=== PATIENT | female | born 1935 | race African-American/Black ===

== ENCOUNTER 2019-07-25 13:50 | Inpatient (IN) ==
[2019-07-25 19:53] LABS: Hematocrit 36.9 % (35.3-44.9); Hemoglobin 11.7 g/dL (11.5-15.4); Mean Corpuscular HGB Conc 31.7 g/dL (31.6-35.5); Mean Corpuscular Hemoglobin 29.1 pg (28.0-33.3); Mean Corpuscular Volume 91.8 fL (83.0-100.0); Mean Platelet Volume 12.8 fL (9.4-12.4); Platelet Count 154 K/mcL (140-400); Red Blood Count 4.02 M/mcL (3.82-4.97); Red Cell Distribution Width 13.6 % (11.5-14.5); White Blood Count 3.7 K/mcL (4.3-11.1)
[2019-07-25 20:03] LABS: Calcium 9.6 mg/dL (8.6-10.3); Potassium 4.4 mEq/L (3.5-5.1)
[2019-07-26 03:02] LABS: Basophils % 0.2 %; Hematocrit 39.1 % (35.3-44.9); Hemoglobin 12.8 g/dL (11.5-15.4); Lymphocytes # 0.8 K/mcL (0.6-4.6); Lymphocytes % 15.7 %; Mean Corpuscular HGB Conc 32.7 g/dL (31.6-35.5); Mean Corpuscular Hemoglobin 29.1 pg (28.0-33.3); Mean Corpuscular Volume 88.9 fL (83.0-100.0); Mean Platelet Volume 12.3 fL (9.4-12.4); Monocytes # 0.4 K/mcL (0.0-1.3); Neutrophils # 3.6 K/mcL (1.6-8.9); Platelet Count 162 K/mcL (140-400); Red Cell Distribution Width 13.3 % (11.5-14.5); Segmented Neutrophils % 75.1 %; White Blood Count 4.8 K/mcL (4.3-11.1)
[2019-07-26 03:16] LABS: Albumin 4.1 g/dL (3.5-5.7); Albumin/Globulin Ratio 1.4 (1.1-2.2); Bilirubin,Total 0.7 mg/dL (0.3-1.0); Calcium 9.3 mg/dL (8.6-10.3); Potassium 3.9 mEq/L (3.5-5.1); Total Protein 7.1 g/dL (6.4-8.9)
[2019-07-26] MEDS: *HR* Heparin 5,000 UNIT/ML VIAL SQ SCH ×3 (06:16→19:42)
[2019-07-26 06:49] LABS: Bilirubin,Urine Negative (Negative); Blood,Urine Moderate (Negative); Clarity,Urine Clear (Clear); Color,Urine Yellow (Yellow); Glucose,Urine (UA) Normal (Normal); Ketones,Urine 40 mg/dL (Negative); Leukocyte Esterase,Urine Negative (Negative); Nitrite,Urine Negative (Negative); PH,Urine 5.5 pH Units (5.0-8.0); Protein,Urine 100 mg/dL (Neg-Trace); Specific Gravity,Urine 1.018 (1.010-1.025); Urobilinogen,Urine Normal (Normal)
[2019-07-26 06:50] LABS: Bacteria,Urine None Seen per hpf (None-Few); Hyaline Casts,Urine None Seen per lpf (None-Few); Squamous Epithelial Cell,Urine Few per lpf (None-Few); WBC,Urine 0-3 per hpf (0-3)
[2019-07-26] MEDS ORDERED: amLODIPine 5 MG TABLET PO SCH (09:00)
[2019-07-26] MEDS: Furosemide 20 MG/2 ML VIAL IVP SCH (09:30)
[2019-07-26] MEDS: amLODIPine 5 MG TABLET PO SCH (09:31)
[2019-07-26] MEDS: cloNIDine HCL 0.1 MG TABLET PO SCH ×3 (09:31→19:41)
[2019-07-26] MEDS ORDERED: *HR* Atropine Sulfate 1 MG/10 ML SYRINGE ONE (21:14)
[2019-07-27] MEDS: *HR* Heparin 5,000 UNIT/ML VIAL SQ SCH (04:23)
[2019-07-27 06:03] LABS: Creatine Kinase 1424 Units/L (30-223); Ferritin 161 ng/mL (10-120); Lactate Dehydrogenase 219 Units/L (140-271)
[2019-07-27] MEDS: cloNIDine HCL 0.1 MG TABLET PO SCH ×3 (10:28→20:17)
[2019-07-27] MEDS: amLODIPine 5 MG TABLET PO SCH (10:28)
[2019-07-27] MEDS: Furosemide 20 MG/2 ML VIAL IVP SCH (10:29)
[2019-07-27] MEDS ORDERED: *HR* Enoxaparin 40 MG/0.4 ML SYRINGE SQ SCH (18:00)
[2019-07-27] MEDS: Doxycycline 100 MG CAPSULE PO SCH (20:16)
[2019-07-27] MEDS: *HR* HYDROcodone/Acet 5/325 mg TABLET PO PRN (21:14)
[2019-07-28 03:25] LABS: Calcium 8.4 mg/dL (8.6-10.3); Magnesium 1.6 mg/dL (1.6-2.6); Potassium 3.5 mEq/L (3.5-5.1)
[2019-07-28] MEDS: Doxycycline 100 MG CAPSULE PO SCH ×2 (09:17→20:47)
[2019-07-28] MEDS: amLODIPine 5 MG TABLET PO SCH (09:17)
[2019-07-28] MEDS: cloNIDine HCL 0.1 MG TABLET PO SCH ×3 (09:17→20:48)
[2019-07-28] MEDS: *HR* Enoxaparin 30 MG/0.3 ML SYRINGE SQ SCH (17:20)
[2019-07-28] MEDS: *HR* HYDROcodone/Acet 5/325 mg TABLET PO PRN (17:20)
[2019-07-29 01:49] LABS: Calcium 8.2 mg/dL (8.6-10.3); Magnesium 1.7 mg/dL (1.6-2.6); Phosphorous 3.2 mg/dL (2.7-4.5); Potassium 3.7 mEq/L (3.5-5.1)
[2019-07-29 02:14] LABS: Uric Acid 7.1 mg/dL (2.3-7.6)
[2019-07-29] MEDS: amLODIPine 5 MG TABLET PO SCH (08:45)
[2019-07-29] MEDS: cloNIDine HCL 0.1 MG TABLET PO SCH ×3 (08:45→20:05)
[2019-07-29] MEDS: Doxycycline 100 MG CAPSULE PO SCH ×2 (08:45→20:05)
[2019-07-29] MEDS: *HR* Enoxaparin 30 MG/0.3 ML SYRINGE SQ SCH (17:29)
[2019-07-30 04:58] LABS: Basophils % 0.3 %; Eosinophils % 0.3 %; Hematocrit 33.9 % (35.3-44.9); Hemoglobin 11.2 g/dL (11.5-15.4); Immature Granulocytes % 0.5 % (0-4); Lymphocytes # 1.1 K/mcL (0.6-4.6); Lymphocytes % 27.9 %; Mean Corpuscular Hemoglobin 29.4 pg (28.0-33.3); Mean Platelet Volume 12.1 fL (9.4-12.4); Monocytes # 0.6 K/mcL (0.0-1.3); Monocytes % 15.4 %; Neutrophils # 2.1 K/mcL (1.6-8.9); Platelet Count 108 K/mcL (140-400); Red Blood Count 3.81 M/mcL (3.82-4.97); Red Cell Distribution Width 13.3 % (11.5-14.5); Segmented Neutrophils % 55.6 %; White Blood Count 3.8 K/mcL (4.3-11.1)
[2019-07-30 05:18] LABS: Albumin 3.1 g/dL (3.5-5.7); Albumin/Globulin Ratio 1.2 (1.1-2.2); Bilirubin,Total 0.4 mg/dL (0.3-1.0); Calcium 8.2 mg/dL (8.6-10.3); Globulin 2.5 g/dL (2.4-3.5); Magnesium 1.6 mg/dL (1.6-2.6); Phosphorous 2.7 mg/dL (2.7-4.5); Total Protein 5.6 g/dL (6.4-8.9)
[2019-07-30] MEDS: cloNIDine HCL 0.1 MG TABLET PO SCH ×3 (06:47→21:45)
[2019-07-30] MEDS: amLODIPine 5 MG TABLET PO SCH (06:49)
[2019-07-30] MEDS: Doxycycline 100 MG CAPSULE PO SCH ×2 (08:32→21:45)
[2019-07-30] MEDS: *HR* HYDROcodone/Acet 5/325 mg TABLET PO PRN (08:32)
[2019-07-30] MEDS: *HR* Enoxaparin 40 MG/0.4 ML SYRINGE SQ SCH (18:21)
[2019-07-31 03:58] LABS: Basophils % 0.3 %; Eosinophils % 0.6 %; Hematocrit 34.2 % (35.3-44.9); Hemoglobin 11.1 g/dL (11.5-15.4); Immature Granulocytes % 0.6 % (0-4); Lymphocytes % 28.7 %; Mean Corpuscular HGB Conc 32.5 g/dL (31.6-35.5); Mean Corpuscular Hemoglobin 29.1 pg (28.0-33.3); Mean Corpuscular Volume 89.8 fL (83.0-100.0); Mean Platelet Volume 12.6 fL (9.4-12.4); Monocytes # 0.6 K/mcL (0.0-1.3); Monocytes % 16.9 %; Neutrophils # 1.9 K/mcL (1.6-8.9); Platelet Count 136 K/mcL (140-400); Red Blood Count 3.81 M/mcL (3.82-4.97); Red Cell Distribution Width 13.5 % (11.5-14.5); Segmented Neutrophils % 52.9 %; White Blood Count 3.6 K/mcL (4.3-11.1)
[2019-07-31 04:15] LABS: Calcium 8.5 mg/dL (8.6-10.3); Magnesium 1.6 mg/dL (1.6-2.6); Potassium 4.2 mEq/L (3.5-5.1)
[2019-07-31] MEDS: Doxycycline 100 MG CAPSULE PO SCH ×2 (08:56→19:39)
[2019-07-31] MEDS: cloNIDine HCL 0.1 MG TABLET PO SCH ×3 (08:56→19:39)
[2019-07-31] MEDS: amLODIPine 5 MG TABLET PO SCH (08:56)
[2019-07-31] MEDS: *HR* Enoxaparin 40 MG/0.4 ML SYRINGE SQ SCH (16:34)
[2019-08-01 06:24] LABS: Hematocrit 33.6 % (35.3-44.9); Hemoglobin 10.7 g/dL (11.5-15.4); Mean Corpuscular HGB Conc 31.8 g/dL (31.6-35.5); Mean Corpuscular Hemoglobin 28.9 pg (28.0-33.3); Mean Corpuscular Volume 90.8 fL (83.0-100.0); Mean Platelet Volume 12.2 fL (9.4-12.4); Platelet Count 150 K/mcL (140-400); Red Cell Distribution Width 13.5 % (11.5-14.5); White Blood Count 3.6 K/mcL (4.3-11.1)
[2019-08-01 06:43] LABS: Calcium 8.4 mg/dL (8.6-10.3); Potassium 4.2 mEq/L (3.5-5.1)
[2019-08-01] MEDS: amLODIPine 5 MG TABLET PO SCH (08:29)
[2019-08-01] MEDS: Doxycycline 100 MG CAPSULE PO SCH ×2 (08:29→20:47)
[2019-08-01] MEDS: cloNIDine HCL 0.1 MG TABLET PO SCH ×3 (08:29→20:47)
[2019-08-01] MEDS: *HR* Enoxaparin 40 MG/0.4 ML SYRINGE SQ SCH (17:01)
[2019-08-02] MEDS: cloNIDine HCL 0.1 MG TABLET PO SCH ×3 (09:00→17:52)
[2019-08-02] MEDS: Acetaminophen 325 MG TABLET PO PRN ×2 (09:23→22:42)
[2019-08-02] MEDS: Doxycycline 100 MG CAPSULE PO SCH ×2 (09:24→21:50)
[2019-08-02] MEDS: amLODIPine 5 MG TABLET PO SCH (09:24)
[2019-08-02] MEDS: *HR* Enoxaparin 40 MG/0.4 ML SYRINGE SQ SCH (18:40)
[2019-08-02 22:45] LABS: D-Dimer 420 ng/mLFEU (0-500)
[2019-08-02 22:52] LABS: Fibrinogen 494 mg/dL (169-393)
[2019-08-03 05:41] LABS: Basophils % 0.4 %; Eosinophils # 0.1 K/mcL (0.0-0.6); Eosinophils % 1.7 %; Hematocrit 34.9 % (35.3-44.9); Hemoglobin 11.3 g/dL (11.5-15.4); Immature Granulocytes % 1.7 % (0-4); Lymphocytes # 1.2 K/mcL (0.6-4.6); Lymphocytes % 22.3 %; Mean Corpuscular HGB Conc 32.4 g/dL (31.6-35.5); Mean Corpuscular Hemoglobin 29.2 pg (28.0-33.3); Mean Corpuscular Volume 90.2 fL (83.0-100.0); Mean Platelet Volume 11.6 fL (9.4-12.4); Monocytes # 0.8 K/mcL (0.0-1.3); Monocytes % 15.9 %; Platelet Count 195 K/mcL (140-400); Red Blood Count 3.87 M/mcL (3.82-4.97); Red Cell Distribution Width 13.7 % (11.5-14.5); White Blood Count 5.2 K/mcL (4.3-11.1)
[2019-08-03 06:01] LABS: Calcium 8.8 mg/dL (8.6-10.3); Magnesium 2.3 mg/dL (1.6-2.6); Potassium 4.3 mEq/L (3.5-5.1)
[2019-08-03] MEDS: amLODIPine 5 MG TABLET PO SCH (07:50)
[2019-08-03] MEDS: Doxycycline 100 MG CAPSULE PO SCH ×2 (07:50→19:59)
[2019-08-03] MEDS: Acetaminophen 325 MG TABLET PO PRN ×2 (12:14→20:42)
[2019-08-03 13:27] LABS: Bilirubin,Urine Negative (Negative); Blood,Urine Trace (Negative); Clarity,Urine Cloudy (Clear); Color,Urine Yellow (Yellow); Glucose,Urine (UA) Normal (Normal); Ketones,Urine Negative (Negative); Leukocyte Esterase,Urine Small (Negative); Nitrite,Urine Negative (Negative); PH,Urine 5.5 pH Units (5.0-8.0); Protein,Urine 30 mg/dL (Neg-Trace); Specific Gravity,Urine 1.021 (1.010-1.025); Urobilinogen,Urine Normal (Normal)
[2019-08-03 13:30] LABS: Bacteria,Urine None Seen per hpf (None-Few); Squamous Epithelial Cell,Urine Many per lpf (None-Few)
[2019-08-03] MEDS ORDERED: *HR* Metoprolol 5 MG/5 ML VIAL IVP ONE (14:38)
[2019-08-03] MEDS ORDERED: cefTRIAXone 1,000 MG in Water for inj. (sterile) 10 ML IVP SCH (15:00)
[2019-08-03] MEDS ORDERED: Vancomycin 1,750 MG/517.5 ML IV.SOLN IVPB ONE (15:10)
[2019-08-03] MEDS: *HR* Enoxaparin 40 MG/0.4 ML SYRINGE SQ SCH (17:36)
[2019-08-03] MEDS: Piperacillin/Tazobactam 3.375 GM in 0.9 % Sodium Chloride Mini Bag 100 ML IVPB SCH ×2 (17:55→23:49)
[2019-08-04] MEDS: Acetaminophen 325 MG TABLET PO PRN (06:03)
[2019-08-04 06:07] LABS: Basophils % 0.3 %; Eosinophils # 0.1 K/mcL (0.0-0.6); Eosinophils % 1.6 %; Hematocrit 35.1 % (35.3-44.9); Hemoglobin 11.2 g/dL (11.5-15.4); Immature Granulocytes % 1.6 % (0-4); Lymphocytes # 1.1 K/mcL (0.6-4.6); Lymphocytes % 18.5 %; Mean Corpuscular HGB Conc 31.9 g/dL (31.6-35.5); Mean Corpuscular Hemoglobin 28.9 pg (28.0-33.3); Mean Corpuscular Volume 90.5 fL (83.0-100.0); Mean Platelet Volume 11.3 fL (9.4-12.4); Monocytes # 0.8 K/mcL (0.0-1.3); Monocytes % 13.3 %; Neutrophils # 3.9 K/mcL (1.6-8.9); Platelet Count 242 K/mcL (140-400); Red Blood Count 3.88 M/mcL (3.82-4.97); Red Cell Distribution Width 13.8 % (11.5-14.5); Segmented Neutrophils % 64.7 %; White Blood Count 6.1 K/mcL (4.3-11.1)
[2019-08-04] MEDS: Piperacillin/Tazobactam 3.375 GM in 0.9 % Sodium Chloride Mini Bag 100 ML IVPB SCH ×3 (08:20→23:31)
[2019-08-04] MEDS: amLODIPine 5 MG TABLET PO SCH (08:20)
[2019-08-04] MEDS: Doxycycline 100 MG CAPSULE PO SCH (08:20)
[2019-08-04] MEDS: Spironolactone 25 MG TABLET PO SCH (11:56)
[2019-08-04] MEDS: *HR* Enoxaparin 40 MG/0.4 ML SYRINGE SQ SCH (18:39)
[2019-08-04] MEDS: Vancomycin 1,500 MG/265 ML IV.SOLN IVPB SCH (20:41)
[2019-08-05 04:12] LABS: Basophils # 0.1 K/mcL (0.0-0.2); Basophils % 0.8 %; Eosinophils % 0.7 %; Hematocrit 35.5 % (35.3-44.9); Immature Granulocytes % 1.6 % (0-4); Lymphocytes # 1.3 K/mcL (0.6-4.6); Lymphocytes % 21.7 %; Mean Corpuscular Hemoglobin 28.2 pg (28.0-33.3); Monocytes # 0.9 K/mcL (0.0-1.3); Monocytes % 14.5 %; Neutrophils # 3.7 K/mcL (1.6-8.9); Platelet Count 273 K/mcL (140-400); Red Cell Distribution Width 13.8 % (11.5-14.5); Segmented Neutrophils % 60.7 %; White Blood Count 6.1 K/mcL (4.3-11.1)
[2019-08-05 04:28] LABS: Calcium 9.1 mg/dL (8.6-10.3); Potassium 4.1 mEq/L (3.5-5.1)
[2019-08-05 04:49] LABS: Platelet Estimate Normal (Normal)
[2019-08-05 04:50] LABS: Reactive Lymphocytes Present (Not Present)
[2019-08-05] MEDS: Piperacillin/Tazobactam 3.375 GM in 0.9 % Sodium Chloride Mini Bag 100 ML IVPB SCH ×3 (08:59→23:13)
[2019-08-05] MEDS: amLODIPine 5 MG TABLET PO SCH (09:00)
[2019-08-05] MEDS: Spironolactone 25 MG TABLET PO SCH (09:00)
[2019-08-05] MEDS: *HR* Enoxaparin 40 MG/0.4 ML SYRINGE SQ SCH (17:16)
[2019-08-05] MEDS: Vancomycin 1,500 MG/265 ML IV.SOLN IVPB SCH (20:34)
[2019-08-05] MEDS: Acetaminophen 325 MG TABLET PO PRN (23:13)
[2019-08-06] MEDS: amLODIPine 5 MG TABLET PO SCH (07:46)
[2019-08-06] MEDS: Spironolactone 25 MG TABLET PO SCH (07:46)
[2019-08-06] MEDS: Piperacillin/Tazobactam 3.375 GM in 0.9 % Sodium Chloride Mini Bag 100 ML IVPB SCH ×3 (07:47→23:51)
[2019-08-06] MEDS ORDERED: Spironolactone 25 MG TABLET PO ONE (08:02)
[2019-08-06] MEDS: *HR* Enoxaparin 40 MG/0.4 ML SYRINGE SQ SCH (16:29)
[2019-08-06] MEDS: Vancomycin 1,500 MG/265 ML IV.SOLN IVPB SCH (20:52)
[2019-08-07 04:10] LABS: Basophils # 0.1 K/mcL (0.0-0.2); Basophils % 0.6 %; Eosinophils # 0.3 K/mcL (0.0-0.6); Eosinophils % 2.9 %; Hematocrit 33.5 % (35.3-44.9); Lymphocytes # 1.9 K/mcL (0.6-4.6); Lymphocytes % 20.7 %; Mean Corpuscular HGB Conc 32.8 g/dL (31.6-35.5); Mean Corpuscular Hemoglobin 29.6 pg (28.0-33.3); Mean Corpuscular Volume 90.1 fL (83.0-100.0); Mean Platelet Volume 11.3 fL (9.4-12.4); Monocytes # 0.9 K/mcL (0.0-1.3); Monocytes % 10.3 %; Neutrophils # 5.8 K/mcL (1.6-8.9); Platelet Count 330 K/mcL (140-400); Red Blood Count 3.72 M/mcL (3.82-4.97); Red Cell Distribution Width 13.8 % (11.5-14.5); Segmented Neutrophils % 63.5 %; White Blood Count 9.1 K/mcL (4.3-11.1)
[2019-08-07 04:18] LABS: BUN/Creatinine Ratio 28 (6-26); Blood Urea Nitrogen 25 mg/dL (8-23); Calcium 9.4 mg/dL (8.6-10.3); Carbon Dioxide 23 mEq/L (23-29); Chloride 107 mEq/L (98-107); Glucose 101 mg/dL (70-105); Osmolality,Calculated 295 (280-300); Potassium 4.1 mEq/L (3.5-5.1); Sodium 140 mEq/L (136-145); eGFR For African Americans > 60 (> 60); eGFR For Non-African Americans > 60 (> 60)
[2019-08-07 04:56] LABS: Platelet Estimate Normal (Normal); Reactive Lymphocytes Present (Not Present)
[2019-08-07] MEDS: amLODIPine 5 MG TABLET PO SCH (08:41)
[2019-08-07] MEDS: Piperacillin/Tazobactam 3.375 GM in 0.9 % Sodium Chloride Mini Bag 100 ML IVPB SCH ×3 (09:05→17:39)
[2019-08-07] MEDS: *HR* Enoxaparin 40 MG/0.4 ML SYRINGE SQ SCH (17:39)
[2019-08-07] MEDS: Vancomycin 1,500 MG/265 ML IV.SOLN IVPB SCH (20:57)
[2019-08-08] MEDS: Piperacillin/Tazobactam 3.375 GM in 0.9 % Sodium Chloride Mini Bag 100 ML IVPB SCH ×3 (00:51→20:44)
[2019-08-08] MEDS: amLODIPine 5 MG TABLET PO SCH (11:15)
[2019-08-08] MEDS: *HR* Enoxaparin 40 MG/0.4 ML SYRINGE SQ SCH (17:37)
[2019-08-08] MEDS: Vancomycin 1,500 MG/265 ML IV.SOLN IVPB SCH (20:44)
[2019-08-09] MEDS: Piperacillin/Tazobactam 3.375 GM in 0.9 % Sodium Chloride Mini Bag 100 ML IVPB SCH ×2 (03:55→11:29)
[2019-08-09] MEDS: amLODIPine 5 MG TABLET PO SCH (09:22)
[2019-08-09] MEDS ORDERED: Aminoglycoside Consult 1 EACH MC ONE (13:02)
[2019-08-09] MEDS: *HR* Enoxaparin 40 MG/0.4 ML SYRINGE SQ SCH (17:02)
[2019-08-10 01:11] VITALS: BP 164/83
[2019-08-10] MEDS: amLODIPine 5 MG TABLET PO SCH (09:51)
== END 2019-08-10 13:03 | DRG 177 ==
LOC: 3BNU 13:50 → EMEROOARM 13:50 → 2NENU 13:50 → SUATTDRO 22:53 → 2NENU 23:00 → SUATTDRO 07-27 12:54
PROVIDERS: ADMIT Family Medicine; ATTEND Student in an Organized Health Care Education/Training Program

== ENCOUNTER 2020-08-01 14:42 | Inpatient (IN) ==
[2020-08-01] MEDS ORDERED: Furosemide 40 MG/4 ML VIAL IVP ONE (15:13)
[2020-08-01 15:29] LABS: Basophils % 0.5 %; Eosinophils # 0.4 K/mcL (0.0-0.6); Eosinophils % 5.2 %; Hemoglobin 10.2 g/dL (11.5-15.4); Immature Granulocytes % 0.5 % (0-4); Lymphocytes % 27.8 %; Mean Corpuscular HGB Conc 30.9 g/dL (31.6-35.5); Mean Corpuscular Hemoglobin 28.5 pg (28.0-33.3); Mean Corpuscular Volume 92.2 fL (83.0-100.0); Mean Platelet Volume 11.5 fL (9.4-12.4); Monocytes % 14.1 %; Neutrophils # 3.8 K/mcL (1.6-8.9); Platelet Count 238 K/mcL (140-400); Red Blood Count 3.58 M/mcL (3.82-4.97); Red Cell Distribution Width 13.7 % (11.5-14.5); Segmented Neutrophils % 51.9 %; White Blood Count 7.3 K/mcL (4.3-11.1)
[2020-08-01 15:49] LABS: Troponin I < 0.03 ng/mL (< 0.04)
[2020-08-01 16:01] LABS: Alanine Aminotransferase 7 Units/L (7-52); Albumin 4.2 g/dL (3.5-5.7); Albumin/Globulin Ratio 1.3 (1.1-2.2); Alkaline Phosphatase 62 Units/L (34-104); Aspartate Amino Transferase 10 Units/L (13-39); BUN/Creatinine Ratio 24 (6-26); Bilirubin,Direct 0.1 mg/dL (0.0-0.2); Bilirubin,Indirect 0.3 mg/dL (0.0-1.0); Bilirubin,Total 0.4 mg/dL (0.3-1.0); Blood Urea Nitrogen 43 mg/dL (8-23); Carbon Dioxide 23 mEq/L (23-29); Chloride 103 mEq/L (98-107); Globulin 3.2 g/dL (2.4-3.5); Glucose 98 mg/dL (70-105); Osmolality,Calculated 295 (280-300); Potassium 4.5 mEq/L (3.5-5.1); Sodium 137 mEq/L (136-145); Total Protein 7.4 g/dL (6.4-8.9); eGFR For African Americans 32 (> 60); eGFR For Non-African Americans 26 (> 60)
[2020-08-01 17:03] LABS: Bilirubin,Urine Negative (Negative); Blood,Urine Negative (Negative); Clarity,Urine Clear (Clear); Color,Urine Colorless (Yellow); Glucose,Urine (UA) Normal (Normal); Ketones,Urine Negative (Negative); Leukocyte Esterase,Urine Negative (Negative); Nitrite,Urine Negative (Negative); PH,Urine 6.5 pH Units (5.0-8.0); Protein,Urine Negative (Neg-Trace); Specific Gravity,Urine 1.007 (1.010-1.025); Urobilinogen,Urine Normal (Normal)
[2020-08-01] MEDS ORDERED: Perflutren Lipid Microsphere 1.3 ML in 0.9 % Sodium Chloride 8.7 ML IVP PRN (23:21)
[2020-08-01] MEDS ORDERED: Furosemide 40 MG TABLET PO PRN (23:24)
[2020-08-01] MEDS ORDERED: Ondansetron 4 MG/2 ML VIAL IVP PRN (23:28)
[2020-08-01] MEDS ORDERED: Naloxone 0.4 MG/ML INJ IVP PRN (23:28)
[2020-08-02] MEDS ORDERED: Clindamycin 600 MG/50 ML 600 MG/50 ML IV.SOLN IVPB SCH (00:06)
[2020-08-02] MEDS: cloNIDine HCL 0.1 MG TABLET PO SCH ×4 (00:34→20:20)
[2020-08-02 01:14] LABS: Hematocrit 33.2 % (35.3-44.9); Hemoglobin 10.7 g/dL (11.5-15.4); Mean Corpuscular HGB Conc 32.2 g/dL (31.6-35.5); Mean Corpuscular Hemoglobin 29.4 pg (28.0-33.3); Mean Corpuscular Volume 91.2 fL (83.0-100.0); Mean Platelet Volume 11.3 fL (9.4-12.4); Platelet Count 236 K/mcL (140-400); Red Blood Count 3.64 M/mcL (3.82-4.97); Red Cell Distribution Width 13.5 % (11.5-14.5); White Blood Count 7.3 K/mcL (4.3-11.1)
[2020-08-02 01:25] LABS: Calcium 9.7 mg/dL (8.6-10.3); Magnesium 2.1 mg/dL (1.6-2.6); Potassium 3.9 mEq/L (3.5-5.1)
[2020-08-02 01:28] LABS: Chol/HDL Ratio 2.4 (0-4.9)
[2020-08-02] MEDS: *HR* Heparin 5,000 UNIT/ML VIAL SQ SCH ×3 (06:04→22:19)
[2020-08-02] MEDS: Cholecalciferol (D-3) 1,000 UNIT (25MCG) TABLET PO SCH (08:45)
[2020-08-02] MEDS: amLODIPine 5 MG TABLET PO SCH (08:46)
[2020-08-02] MEDS ORDERED: cloNIDine HCL 0.1 MG TABLET PO SCH (09:00)
[2020-08-02] MEDS ORDERED: Furosemide 40 MG TABLET PO SCH (09:00)
[2020-08-02 09:12] LABS: Folate 12.2 ng/mL (3.0-16.0)
[2020-08-02 09:17] LABS: Estimated Average Glucose 128 mg/dl; Hemoglobin A1C 6.1 %
[2020-08-02] MEDS: Clindamycin 600 MG/50 ML 600 MG/50 ML IV.SOLN IVPB SCH ×2 (13:28→20:21)
[2020-08-03] MEDS: Clindamycin 600 MG/50 ML 600 MG/50 ML IV.SOLN IVPB SCH ×3 (05:33→21:26)
[2020-08-03] MEDS: *HR* Heparin 5,000 UNIT/ML VIAL SQ SCH ×3 (05:34→21:26)
[2020-08-03 07:06] LABS: Hematocrit 31.3 % (35.3-44.9); Hemoglobin 9.8 g/dL (11.5-15.4); Mean Corpuscular HGB Conc 31.3 g/dL (31.6-35.5); Mean Corpuscular Hemoglobin 28.9 pg (28.0-33.3); Mean Corpuscular Volume 92.3 fL (83.0-100.0); Mean Platelet Volume 11.6 fL (9.4-12.4); Platelet Count 217 K/mcL (140-400); Red Blood Count 3.39 M/mcL (3.82-4.97); Red Cell Distribution Width 13.8 % (11.5-14.5); White Blood Count 6.4 K/mcL (4.3-11.1)
[2020-08-03 07:24] LABS: Calcium 9.5 mg/dL (8.6-10.3); Potassium 4.1 mEq/L (3.5-5.1)
[2020-08-03] MEDS: Cholecalciferol (D-3) 1,000 UNIT (25MCG) TABLET PO SCH (10:19)
[2020-08-03] MEDS: amLODIPine 5 MG TABLET PO SCH ×2 (10:20→21:26)
[2020-08-03] MEDS: Cyanocobalamin (B-12) 1,000 MCG TABLET PO SCH (10:20)
[2020-08-03] MEDS: Lactobacillus 1 EACH CAP.SPRINK PO SCH (10:20)
[2020-08-03] MEDS: cloNIDine HCL 0.1 MG TABLET PO SCH (10:20)
[2020-08-03] MEDS: Furosemide 40 MG/4 ML VIAL IVP SCH (10:20)
[2020-08-04 01:32] LABS: Basophils % 0.4 %; Eosinophils # 0.5 K/mcL (0.0-0.6); Hematocrit 30.6 % (35.3-44.9); Immature Granulocytes % 0.6 % (0-4); Lymphocytes # 2.3 K/mcL (0.6-4.6); Lymphocytes % 32.3 %; Mean Corpuscular HGB Conc 32.7 g/dL (31.6-35.5); Mean Corpuscular Hemoglobin 29.7 pg (28.0-33.3); Mean Corpuscular Volume 90.8 fL (83.0-100.0); Mean Platelet Volume 11.4 fL (9.4-12.4); Neutrophils # 3.3 K/mcL (1.6-8.9); Platelet Count 209 K/mcL (140-400); Red Blood Count 3.37 M/mcL (3.82-4.97); Red Cell Distribution Width 13.7 % (11.5-14.5); Segmented Neutrophils % 45.7 %; White Blood Count 7.1 K/mcL (4.3-11.1)
[2020-08-04 01:54] LABS: Calcium 9.2 mg/dL (8.6-10.3); Potassium 3.9 mEq/L (3.5-5.1)
[2020-08-04] MEDS: Clindamycin 600 MG/50 ML 600 MG/50 ML IV.SOLN IVPB SCH ×3 (04:51→19:58)
[2020-08-04] MEDS: *HR* Heparin 5,000 UNIT/ML VIAL SQ SCH ×3 (04:51→20:15)
[2020-08-04] MEDS: amLODIPine 5 MG TABLET PO SCH ×2 (08:19→19:57)
[2020-08-04] MEDS: Lactobacillus 1 EACH CAP.SPRINK PO SCH (08:19)
[2020-08-04] MEDS: Furosemide 40 MG/4 ML VIAL IVP SCH (08:19)
[2020-08-04] MEDS: Cholecalciferol (D-3) 1,000 UNIT (25MCG) TABLET PO SCH (08:19)
[2020-08-04] MEDS: Cyanocobalamin (B-12) 1,000 MCG TABLET PO SCH (08:19)
[2020-08-04] MEDS: cloNIDine HCL 0.1 MG TABLET PO SCH ×3 (12:37→19:57)
[2020-08-05] MEDS: Clindamycin 600 MG/50 ML 600 MG/50 ML IV.SOLN IVPB SCH ×3 (04:45→20:31)
[2020-08-05] MEDS: *HR* Heparin 5,000 UNIT/ML VIAL SQ SCH ×3 (04:46→20:31)
[2020-08-05 04:49] LABS: Calcium 9.6 mg/dL (8.6-10.3); Potassium 3.8 mEq/L (3.5-5.1)
[2020-08-05] MEDS: Cyanocobalamin (B-12) 1,000 MCG TABLET PO SCH (08:06)
[2020-08-05] MEDS: Lactobacillus 1 EACH CAP.SPRINK PO SCH (08:06)
[2020-08-05] MEDS: amLODIPine 5 MG TABLET PO SCH ×2 (08:06→20:31)
[2020-08-05] MEDS: Cholecalciferol (D-3) 1,000 UNIT (25MCG) TABLET PO SCH (08:06)
[2020-08-05] MEDS: Furosemide 40 MG/4 ML VIAL IVP SCH (08:06)
[2020-08-05] MEDS: cloNIDine HCL 0.1 MG TABLET PO SCH ×3 (08:06→20:31)
[2020-08-05] MEDS: hydrALAZINE 25 MG TABLET PO SCH ×2 (16:21→23:43)
[2020-08-06 02:58] LABS: Hematocrit 32.2 % (35.3-44.9); Hemoglobin 10.3 g/dL (11.5-15.4); Mean Corpuscular Hemoglobin 29.2 pg (28.0-33.3); Mean Corpuscular Volume 91.2 fL (83.0-100.0); Mean Platelet Volume 11.3 fL (9.4-12.4); Platelet Count 238 K/mcL (140-400); Red Blood Count 3.53 M/mcL (3.82-4.97); Red Cell Distribution Width 13.9 % (11.5-14.5)
[2020-08-06 03:10] LABS: Calcium 9.7 mg/dL (8.6-10.3)
[2020-08-06] MEDS: Clindamycin 600 MG/50 ML 600 MG/50 ML IV.SOLN IVPB SCH (05:57)
[2020-08-06] MEDS: *HR* Heparin 5,000 UNIT/ML VIAL SQ SCH (05:58)
[2020-08-06 07:42] VITALS: BP 158/77
[2020-08-06] MEDS: Furosemide 40 MG/4 ML VIAL IVP SCH (07:53)
[2020-08-06] MEDS: hydrALAZINE 25 MG TABLET PO SCH (07:53)
[2020-08-06] MEDS: cloNIDine HCL 0.1 MG TABLET PO SCH (07:54)
[2020-08-06] MEDS: amLODIPine 5 MG TABLET PO SCH (07:54)
[2020-08-06] MEDS: Cyanocobalamin (B-12) 1,000 MCG TABLET PO SCH (07:54)
[2020-08-06] MEDS: Cholecalciferol (D-3) 1,000 UNIT (25MCG) TABLET PO SCH (07:54)
[2020-08-06] MEDS: Lactobacillus 1 EACH CAP.SPRINK PO SCH (07:54)
== END 2020-08-06 12:13 | disposition home health service (06) | DRG 603 ==
LOC: 3NENU 14:42 → EMEROOARM 14:42 → SUATTDRO 20:31 → 3NENU 21:22
PROVIDERS: ADMIT Internal Medicine; ATTEND General Practice

== ENCOUNTER 2021-01-22 17:16 | Inpatient (IN) ==
[2021-01-22 18:43] LABS: Basophils % 0.4 %; Eosinophils # 0.8 K/mcL (0.0-0.6); Eosinophils % 8.8 %; Hematocrit 25.5 % (35.3-44.9); Hemoglobin 8.3 g/dL (11.5-15.4); Immature Granulocytes % 1.5 % (0-4); Lymphocytes # 1.8 K/mcL (0.6-4.6); Lymphocytes % 18.9 %; Mean Corpuscular HGB Conc 32.5 g/dL (31.6-35.5); Mean Corpuscular Hemoglobin 29.3 pg (28.0-33.3); Mean Corpuscular Volume 90.1 fL (83.0-100.0); Mean Platelet Volume 10.7 fL (9.4-12.4); Monocytes # 1.3 K/mcL (0.0-1.3); Monocytes % 13.8 %; Neutrophils # 5.3 K/mcL (1.6-8.9); Platelet Count 428 K/mcL (140-400); Red Blood Count 2.83 M/mcL (3.82-4.97); Red Cell Distribution Width 13.7 % (11.5-14.5); Segmented Neutrophils % 56.6 %; White Blood Count 9.4 K/mcL (4.3-11.1)
[2021-01-22 18:50] LABS: INR 1.2; Prothrombin Time 13.4 Seconds (9.4-12.1)
[2021-01-22 18:52] LABS: Activated Partial Thrombo Time 50.4 Seconds (26.0-36.0)
[2021-01-22] MEDS ORDERED: Isovue-370 500 ML BOTTLE IVP ONE (18:56)
[2021-01-22 19:05] LABS: Potassium 2.4 mEq/L (3.5-5.1)
[2021-01-22 20:23] LABS: Bacteria,Urine Few per hpf (None-Few); Bilirubin,Urine Negative (Negative); Blood,Urine Negative (Negative); Clarity,Urine Clear (Clear); Color,Urine Colorless (Yellow); Glucose,Urine (UA) Normal (Normal); Hyaline Casts,Urine Few per lpf (None Seen); Ketones,Urine Negative (Negative); Leukocyte Esterase,Urine Small (Negative); Nitrite,Urine Negative (Negative); PH,Urine 6.5 pH Units (5.0-8.0); Protein,Urine Negative (Neg-Trace); RBC,Urine 0-3 per hpf (0-3); Specific Gravity,Urine 1.006 (1.010-1.025); Squamous Epithelial Cell,Urine Few per hpf (None-Few); Urobilinogen,Urine Normal (Normal); WBC,Urine 0-3 per hpf (0-3)
[2021-01-22] MEDS ORDERED: MetroNIDAZOLE 500 MG/100 ML 500 MG/100 ML BAG IVPB ONE (21:54)
[2021-01-22] MEDS ORDERED: Potassium Chloride Elixir 20 MEQ/15 ML UDC PO ONE (22:10)
[2021-01-22] MEDS ORDERED: Naloxone 0.4 MG/ML INJ IVP PRN (23:00)
[2021-01-23] MEDS: cloNIDine HCL 0.1 MG TABLET PO SCH ×4 (00:13→21:23)
[2021-01-23 01:52] LABS: Basophils % 0.5 %; Eosinophils # 0.7 K/mcL (0.0-0.6); Eosinophils % 7.8 %; Hematocrit 23.3 % (35.3-44.9); Hemoglobin 7.4 g/dL (11.5-15.4); Immature Granulocytes % 1.4 % (0-4); Lymphocytes # 1.6 K/mcL (0.6-4.6); Lymphocytes % 18.9 %; Mean Corpuscular HGB Conc 31.8 g/dL (31.6-35.5); Mean Corpuscular Hemoglobin 28.6 pg (28.0-33.3); Mean Platelet Volume 10.1 fL (9.4-12.4); Monocytes # 1.2 K/mcL (0.0-1.3); Monocytes % 13.8 %; Neutrophils # 4.9 K/mcL (1.6-8.9); Platelet Count 408 K/mcL (140-400); Red Blood Count 2.59 M/mcL (3.82-4.97); Red Cell Distribution Width 13.8 % (11.5-14.5); Segmented Neutrophils % 57.6 %; White Blood Count 8.5 K/mcL (4.3-11.1)
[2021-01-23 02:04] LABS: INR 1.2; Prothrombin Time 13.9 Seconds (9.4-12.1)
[2021-01-23 02:07] LABS: Calcium 8.5 mg/dL (8.6-10.3)
[2021-01-23 02:10] LABS: Albumin 2.9 g/dL (3.5-5.7); Albumin/Globulin Ratio 1.1 (1.1-2.2); Bilirubin,Total 0.4 mg/dL (0.3-1.0); Calcium 8.5 mg/dL (8.6-10.3); Globulin 2.7 g/dL (2.4-3.5); Iron 25 mcg/dL (50-170); Magnesium 1.6 mg/dL (1.6-2.6); Phosphorous 2.3 mg/dL (2.7-4.5); Total Protein 5.6 g/dL (6.4-8.9)
[2021-01-23 02:33] LABS: Folate 10.6 ng/mL (3.0-16.0)
[2021-01-23 02:35] LABS: Vitamin B12 > 1500 pg/mL (250-1100)
[2021-01-23] MEDS ORDERED: Cefepime HCl 1,000 MG in Water for inj. (sterile) 10 ML IVP SCH (06:00)
[2021-01-23 07:06] LABS: Hematocrit 23.5 % (35.3-44.9); Hemoglobin 7.3 g/dL (11.5-15.4)
[2021-01-23 08:16] LABS: Calcium 8.4 mg/dL (8.6-10.3); Potassium 2.5 mEq/L (3.5-5.1)
[2021-01-23] MEDS: Furosemide 20 MG/2 ML VIAL IVP SCH ×2 (09:34→17:17)
[2021-01-23] MEDS: Piperacillin/Tazobactam 3.375 GM in 0.9 % Sodium Chloride Mini Bag 100 ML IVPB SCH ×2 (09:48→18:24)
[2021-01-23] MEDS ORDERED: Potassium Effervescent 25 MEQ TABLET.EFF PO ONE ×2 (10:54→18:15)
[2021-01-23] MEDS ORDERED: Triamcinolone Acet 0.1% CRM 15 GM TUBE TP PRN (14:27)
[2021-01-23] MEDS: hydrALAZINE 25 MG TABLET PO SCH ×2 (15:27→21:23)
[2021-01-23 16:16] LABS: Hematocrit 25.1 % (35.3-44.9); Hemoglobin 7.8 g/dL (11.5-15.4)
[2021-01-23 16:36] LABS: Calcium 8.5 mg/dL (8.6-10.3); Potassium 3.2 mEq/L (3.5-5.1)
[2021-01-23 16:45] LABS: % Iron Saturation 12 % (15-50); Transferrin 148 mg/dL (203-362)
[2021-01-23] MEDS ORDERED: SODIUM CHLORIDE/NAHCO3/KCL/PEG 4,000 ML SOLN.RECON PO ONE (17:00)
[2021-01-23] MEDS: Ammonium Lactate 30 APPL/225 GM BOTTLE TP SCH (21:26)
[2021-01-23 23:00] LABS: Calcium 8.5 mg/dL (8.6-10.3); Potassium 3.5 mEq/L (3.5-5.1)
[2021-01-24] MEDS: Piperacillin/Tazobactam 3.375 GM in 0.9 % Sodium Chloride Mini Bag 100 ML IVPB SCH ×3 (00:22→16:04)
[2021-01-24 04:21] LABS: VBG Ionized Calcium 1.09 mmol/L (1.15-1.35)
[2021-01-24 04:24] LABS: Hemoglobin 8.2 g/dL (11.5-15.4); Mean Corpuscular HGB Conc 31.5 g/dL (31.6-35.5); Mean Corpuscular Hemoglobin 28.4 pg (28.0-33.3); Mean Platelet Volume 9.7 fL (9.4-12.4); Platelet Count 459 K/mcL (140-400); Red Blood Count 2.89 M/mcL (3.82-4.97); Red Cell Distribution Width 14.1 % (11.5-14.5); White Blood Count 10.6 K/mcL (4.3-11.1)
[2021-01-24 04:39] LABS: Albumin 3.1 g/dL (3.5-5.7); Calcium 8.6 mg/dL (8.6-10.3); Magnesium 1.6 mg/dL (1.6-2.6); Potassium 3.2 mEq/L (3.5-5.1)
[2021-01-24] MEDS: Furosemide 20 MG/2 ML VIAL IVP SCH ×2 (07:08→16:52)
[2021-01-24] MEDS: hydrALAZINE 25 MG TABLET PO SCH ×3 (07:46→20:46)
[2021-01-24] MEDS: cloNIDine HCL 0.1 MG TABLET PO SCH ×3 (09:40→20:47)
[2021-01-24] MEDS: Ammonium Lactate 30 APPL/225 GM BOTTLE TP SCH ×2 (09:40→20:48)
[2021-01-24] MEDS: Cyanocobalamin (B-12) 1,000 MCG TABLET PO SCH (09:40)
[2021-01-24] MEDS: Cholecalciferol (D-3) 1,000 UNIT (25MCG) TABLET PO SCH (09:41)
[2021-01-24] MEDS ORDERED: Ondansetron 4 MG/2 ML VIAL IVP PRN (12:36)
[2021-01-24] MEDS ORDERED: Potassium Effervescent 25 MEQ TABLET.EFF PO ONE (15:43)
[2021-01-24] MEDS: *HR* Labetalol 20 MG/4 ML SYRINGE IVP PRN (23:53)
[2021-01-25] MEDS: Piperacillin/Tazobactam 3.375 GM in 0.9 % Sodium Chloride Mini Bag 100 ML IVPB SCH ×3 (00:31→15:51)
[2021-01-25 02:14] LABS: Calcium 8.9 mg/dL (8.6-10.3); Magnesium 1.8 mg/dL (1.6-2.6); Potassium 3.2 mEq/L (3.5-5.1)
[2021-01-25] MEDS: *HR* Labetalol 20 MG/4 ML SYRINGE IVP PRN (04:39)
[2021-01-25] MEDS: Furosemide 20 MG/2 ML VIAL IVP SCH (08:38)
[2021-01-25] MEDS: Cholecalciferol (D-3) 1,000 UNIT (25MCG) TABLET PO SCH (08:50)
[2021-01-25] MEDS: Spironolactone 25 MG TABLET PO SCH (08:51)
[2021-01-25] MEDS: hydrALAZINE 25 MG TABLET PO SCH ×3 (08:51→21:08)
[2021-01-25] MEDS: Cyanocobalamin (B-12) 1,000 MCG TABLET PO SCH (08:51)
[2021-01-25] MEDS: cloNIDine HCL 0.1 MG TABLET PO SCH ×3 (08:52→21:08)
[2021-01-25] MEDS: Ammonium Lactate 30 APPL/225 GM BOTTLE TP SCH ×2 (08:52→21:10)
[2021-01-25] MEDS: Furosemide 40 MG TABLET PO SCH (13:35)
[2021-01-26] MEDS: Piperacillin/Tazobactam 3.375 GM in 0.9 % Sodium Chloride Mini Bag 100 ML IVPB SCH ×3 (00:27→16:11)
[2021-01-26 02:27] LABS: Basophils # 0.1 K/mcL (0.0-0.2); Basophils % 0.7 %; Eosinophils # 0.9 K/mcL (0.0-0.6); Eosinophils % 7.1 %; Hematocrit 25.1 % (35.3-44.9); Hemoglobin 7.7 g/dL (11.5-15.4); Immature Granulocytes % 2.3 % (0-4); Lymphocytes # 2.3 K/mcL (0.6-4.6); Lymphocytes % 18.1 %; Mean Corpuscular HGB Conc 30.7 g/dL (31.6-35.5); Mean Corpuscular Hemoglobin 28.6 pg (28.0-33.3); Mean Corpuscular Volume 93.3 fL (83.0-100.0); Mean Platelet Volume 9.5 fL (9.4-12.4); Monocytes # 1.3 K/mcL (0.0-1.3); Monocytes % 10.3 %; Neutrophils # 7.8 K/mcL (1.6-8.9); Nucleated Red Blood Cells 0.2 /100 WBC (0); Platelet Count 426 K/mcL (140-400); Red Blood Count 2.69 M/mcL (3.82-4.97); Red Cell Distribution Width 14.7 % (11.5-14.5); Segmented Neutrophils % 61.5 %; White Blood Count 12.7 K/mcL (4.3-11.1)
[2021-01-26 02:46] LABS: Calcium 8.7 mg/dL (8.6-10.3); Magnesium 1.7 mg/dL (1.6-2.6); Potassium 3.5 mEq/L (3.5-5.1)
[2021-01-26] MEDS: Furosemide 40 MG TABLET PO SCH (08:42)
[2021-01-26] MEDS: hydrALAZINE 25 MG TABLET PO SCH ×3 (08:42→20:30)
[2021-01-26] MEDS: Spironolactone 25 MG TABLET PO SCH (08:42)
[2021-01-26] MEDS: Cholecalciferol (D-3) 1,000 UNIT (25MCG) TABLET PO SCH (08:42)
[2021-01-26] MEDS: cloNIDine HCL 0.1 MG TABLET PO SCH ×3 (08:42→20:30)
[2021-01-26] MEDS: Ammonium Lactate 30 APPL/225 GM BOTTLE TP SCH ×2 (08:48→20:30)
[2021-01-26] MEDS: Cyanocobalamin (B-12) 1,000 MCG TABLET PO SCH (08:48)
[2021-01-26] MEDS: Iron Sucrose Complex 200 MG in 0.9 % Sodium Chloride 100 ML IVPB SCH (18:04)
[2021-01-27] MEDS: Piperacillin/Tazobactam 3.375 GM in 0.9 % Sodium Chloride Mini Bag 100 ML IVPB SCH ×2 (01:02→08:51)
[2021-01-27 06:27] LABS: Basophils # 0.1 K/mcL (0.0-0.2); Basophils % 0.8 %; Eosinophils # 1.8 K/mcL (0.0-0.6); Eosinophils % 13.7 %; Hematocrit 25.2 % (35.3-44.9); Hemoglobin 7.8 g/dL (11.5-15.4); Immature Granulocytes % 3.8 % (0-4); Lymphocytes # 2.4 K/mcL (0.6-4.6); Lymphocytes % 17.9 %; Mean Corpuscular Hemoglobin 28.9 pg (28.0-33.3); Mean Corpuscular Volume 93.3 fL (83.0-100.0); Monocytes # 1.4 K/mcL (0.0-1.3); Monocytes % 10.4 %; Neutrophils # 7.1 K/mcL (1.6-8.9); Nucleated Red Blood Cells 0.3 /100 WBC (0); Platelet Count 449 K/mcL (140-400); Red Cell Distribution Width 14.9 % (11.5-14.5); Segmented Neutrophils % 53.4 %; White Blood Count 13.3 K/mcL (4.3-11.1)
[2021-01-27 06:32] LABS: Potassium 3.4 mEq/L (3.5-5.1)
[2021-01-27] MEDS: Cholecalciferol (D-3) 1,000 UNIT (25MCG) TABLET PO SCH (08:09)
[2021-01-27] MEDS: hydrALAZINE 25 MG TABLET PO SCH ×2 (08:10→14:48)
[2021-01-27] MEDS: Ammonium Lactate 30 APPL/225 GM BOTTLE TP SCH (08:10)
[2021-01-27] MEDS: Cyanocobalamin (B-12) 1,000 MCG TABLET PO SCH (08:10)
[2021-01-27] MEDS: cloNIDine HCL 0.1 MG TABLET PO SCH ×2 (08:10→14:48)
[2021-01-27] MEDS: Iron Sucrose Complex 200 MG in 0.9 % Sodium Chloride 100 ML IVPB SCH (08:11)
[2021-01-27 14:49] VITALS: BP 189/64; PULSE 92; TEMP 98.4; O2SAT 98
[2021-01-27] MEDS ORDERED: Piperacillin/Tazobactam 3.375 GM in 0.9 % Sodium Chloride Mini Bag 100 ML IVPB SCH (20:00)
== END 2021-01-27 19:25 | disposition home health service (06) | DRG 394 ==
LOC: EMEROOARM 17:16 → 3ANU 17:16 → SUATTDRO 22:30 → 3ANU 22:50
PROVIDERS: ADMIT Family Medicine; ATTEND Hospitalist
PROC: ENDOCBX (2021-01-24 08:00)